=== PATIENT | female | born 1955 | race American Indian/Alaskan Native ===

== ENCOUNTER → 2018-03-07 13:48 | Outpatient (CLI) | payer MEDICARE, MEDICAID, OTHER, SELFPAY | PROVIDERS: Family Provider Physician Assistant; PCP Physician Assistant; Visit Provider Physician Assistant | DX: M81.0 Age-related osteoporosis without current pathological fracture (principal); E11.9 Type 2 diabetes mellitus without complications; F17.210 Nicotine dependence, cigarettes, uncomplicated; Z78.0 Asymptomatic menopausal state; Z82.62 Family history of osteoporosis | CPT/HCPCS: 77080; 77081 ==

== ENCOUNTER → 2018-06-15 12:55 | Outpatient (CLI) | payer MEDICARE, MEDICAID, OTHER, SELFPAY ==
--- NOTE | 2018-06-15 13:00 | DI.RAD.S_ITS ---
PROCEDURE: XR HAND RT MIN 3V INDICATIONS: bilateral hand and joint pain TECHNIQUE: 3 views of the hand(s) acquired. COMPARISON: [facility], CR, XR HAND LT MIN 3V, 06/15/2018, 12:47. [facility], CR, HAND MIN 3VW (RT), 12/29/2011, 13:35. FINDINGS: Bones: No fractures or dislocations. Carpal bones are normally aligned. No suspicious bony lesions. No changes are seen, which are overall most prominent at the 1st carpometacarpal joint, where there is at least moderate joint space narrowing with associated subchondral sclerosis and irregularity, with osteophyte formation. Age-appropriate osteopenia is seen. Soft tissues: No suspicious soft tissue calcifications. IMPRESSION: Degenerative changes are seen, which have progressed compared to 2011. The degenerative changes are most prominent at the 1st carpometacarpal joint. Dictated by: Mani Poe M.D. on 06/15/2018 at 14:50 Approved by: Mani Poe M.D. on 06/15/2018 at 14:51
--- NOTE | 2018-06-15 13:00 | DI.RAD.S_ITS ---
PROCEDURE: XR HAND LT MIN 3V INDICATIONS: bilateral hand and joint pain TECHNIQUE: 3 views of the hand(s) acquired. COMPARISON: [facility], CR, HAND MIN 3VW (LT), 12/29/2011, 13:35. [facility], CR, XR HAND RT MIN 3V, 06/15/2018, 12:47. FINDINGS: Bones: No fractures or dislocations. Carpal bones are normally aligned. No suspicious bony lesions. Age-appropriate osteopenia is seen. Degenerative changes are seen throughout, which are most prominent involving the 1st carpometacarpal joint. Soft tissues: No suspicious soft tissue calcifications. IMPRESSION: Osteopenia and degenerative changes. The degenerative changes have progressed compared to 2011. Dictated by: Mani Poe M.D. on 06/15/2018 at 14:48 Approved by: Mani Poe M.D. on 06/15/2018 at 14:50
== END ==
PROVIDERS: Family Provider Physician Assistant; PCP Physician Assistant; Visit Provider Physician Assistant
DX: M79.641 Pain in right hand (principal); M79.642 Pain in left hand; M18.0 Bilateral primary osteoarthritis of first carpometacarpal joints; M85.842 Other specified disorders of bone density and structure, left hand
CPT/HCPCS: 73130

== ENCOUNTER → 2018-07-04 13:21 | Outpatient (CLI) | payer MEDICARE, OTHER, SELFPAY ==
--- NOTE | 2018-07-04 | DI.RAD.S_ITS ---
PROCEDURE: XR KNEE LT 3V INDICATIONS: RIGHT HAND ,LEFT KNEE AND RIGHT HIP PAIN TECHNIQUE: 3 views of the knee were acquired. COMPARISON: None. FINDINGS: Bones: No fractures or dislocations. No suspicious bony lesions. Soft tissues: No joint effusion. No suspicious soft tissue calcifications. IMPRESSION: No trauma found. No appreciable degenerative change. Dictated by: Nick Peters M.D. on 07/04/2018 at 15:02 Approved by: Nick Peters M.D. on 07/04/2018 at 15:02
--- NOTE | 2018-07-04 | DI.RAD.S_ITS ---
PROCEDURE: XR WRIST RT MIN 3V INDICATIONS: RIGHT WRIST ,LEFT KNEE AND RIGHT HIP PAIN TECHNIQUE: 4 views of the wrist were acquired. COMPARISON: None. FINDINGS: Bones: No fractures or dislocations, but there is a moderate degree of degenerative osteophytic change at the articulation between the base of the first metacarpal and the trapezium. No suspicious bony lesions. Scaphoid view: Degenerative osteoarthritis is mild at the distal scaphoid but no trauma is seen. Soft tissues: No suspicious soft tissue calcifications. IMPRESSION: No trauma found. 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 Dictated by: Nick Peters M.D. on 07/04/2018 at 15:01 Approved by: Nick Peters M.D. on 07/04/2018 at 15:02
--- NOTE | 2018-07-04 | DI.RAD.S_ITS ---
PROCEDURE: XR HIP W PEL IF DONE RT 2V INDICATIONS: RIGHT HAND ,LEFT KNEE AND RIGHT HIP PAIN TECHNIQUE: AP pelvis with lateral view(s) of the right hip(s). COMPARISON: [facility], , HIPBILAT 3TO4V W PEL IF PERFD, 04/30/2016, 11:53. FINDINGS: Bones: No fractures or dislocations. Pelvic ring appears intact. No suspicious bony lesions. Left hip degenerative osteoarthritis is present, mild in overall severity. Right hip arthroplasty shows no evidence of device loosening or disruption. Soft tissues: The visualized bowel gas pattern is normal. No suspicious soft tissue calcifications. IMPRESSION: Prior right total hip arthroplasty appears normal, left hip mild degenerative osteophytic change as was previously the case. Dictated by: Nick Peters M.D. on 07/04/2018 at 14:59 Approved by: Nick Peters M.D. on 07/04/2018 at 15:00
== END ==
PROVIDERS: Family Provider Physician Assistant; PCP Physician Assistant; Visit Provider Physician Assistant
DX: M25.551 Pain in right hip (principal); M79.641 Pain in right hand; M25.562 Pain in left knee; M16.12 Unilateral primary osteoarthritis, left hip; M19.041 Primary osteoarthritis, right hand; Z96.641 Presence of right artificial hip joint
CPT/HCPCS: 73110; 73502; 73562

== ENCOUNTER → 2018-09-06 13:00 | Outpatient (CLI) | payer MEDICARE, MEDICAID, OTHER, SELFPAY ==
--- NOTE | 2018-09-06 | DI.RAD.S_ITS ---
PROCEDURE: XR CHEST 2V INDICATIONS: RIGHT SIDE CLAVICAL PAIN TECHNIQUE: 2 views of the chest were acquired. COMPARISON: [facility], , CHEST 2 VIEW, 07/12/2013, 23:50. FINDINGS: Surgical changes and devices: Right upper quadrant surgical clips. Lungs and pleura: No pleural effusions or pneumothorax. No acute consolidation. Scattered subsegmental atelectasis and/or scarring Mediastinum: Mediastinal contours are normal. Heart size is normal. Bones and chest wall: No suspicious bony abnormalities. Soft tissues appear unremarkable. IMPRESSION: No acute consolidation. Scattered subsegmental atelectasis and/or scarring Dictated by: Immanuel Yan M.D. on 09/06/2018 at 16:03 Approved by: Immanuel Yan M.D. on 09/06/2018 at 16:04
== END ==
PROVIDERS: Family Provider Physician Assistant; PCP Physician Assistant; Visit Provider Physician Assistant
DX: R22.1 Localized swelling, mass and lump, neck (principal); M25.511 Pain in right shoulder
CPT/HCPCS: 71046

== ENCOUNTER 2018-10-11 11:50 | Day surgery (SDC) | payer MEDICARE, OTHER, MEDICAID, SELFPAY ==
[2018-10-11] VITALS (7 sets, daily range): BP systolic 94–130; BP diastolic 60–90; PULSE 90–102; RESP 17–25; TEMP 36.1–37; O2SAT 95–99; BMI 31.1
--- NOTE | 2018-10-11 | PATH_ITS ---
[facility] Accession Number: [id number] . 01 Material submitted: . POLYP IN PROXIMAL RIGHT COLON . 02 Diagnosis: Proximal Right Colon, Polyp, Biopsy: Tubular adenoma. V/10/13/2018 . 02 Electronically signed: . Steph Avila MD, Pathologist NPI- [id number] . 01 Gross description: . POLYP IN PROXIMAL RIGHT COLON: Received in formalin is 1 fragment(s) of james, soft tissue measuring 0.4 x 0.3 x 0.3 cm submitted entirely in 1 cassette(s) /CKI /CKI . 02 Pathologist provided ICD-10: D12.6 . 02 CPT . 532520 Performed at: 01 [facility] [address] [id number] MD Reed Inman MD Phone: [phone] Performed at: 02 [facility] [address] [place], [place] [id number] MD Steph Avila MD Phone: [phone]
--- NOTE | 2018-10-11 13:45 | PM.HP.1 ---
History of Present Illness Date Patient Seen: 10/11/18 Time Patient Seen: 13:46 Chief complaint: [id number] Colonoscopy Narrative: Jolene is a wonderful 63-year-old lady who presents for colonoscopy. She reports that she has had lower abdominal pain for 5 or 6 years and it has not really changed but she has not been really evaluated for it either. Last colonoscopy was about 10 years ago and was normal. She denies any new problems since I last saw her in the office. Patient History Family & Social History Family History: Reviewed 10/11/18 by Susei Wilkinson MD Social History: household members family,friend(s) Tobacco & Substance use: Smoking Status Current every day smoker alcohol intake never Meds Home Medications Medication Instructions Recorded Confirmed Type CHOLECALCIFEROL (VITAMIN D3) 400 iu PO QDAY #0 07/06/10 10/11/18 History (Vitamin D3) LISINOPRIL (Zestril / Prinivil) 10 mg PO QDAY #0 07/06/10 10/11/18 History Trazodone Hydrochloride (Trazodone 50 mg PO QDAY #0 07/06/10 10/11/18 History HCl) VITAMIN C - 250 mg PO Q DAY #0 07/06/10 10/11/18 History (VITAMIN C) alendronate 70 mg PO Q7D@0730 #0 tab 07/13/13 08/01/18 History paroxetine HCl 30 mg PO QDAY #0 tab 07/13/13 10/11/18 History rosuvastatin [Crestor] 20 mg PO QDAY #0 tab 07/13/13 10/11/18 History aspirin 81 mg tablet,delayed 81 mg PO DAILY 08/01/18 10/11/18 History release calcium carbonate 600 mg calcium 600 mg PO BID tab 08/01/18 10/11/18 History (1,500 mg) tablet cholecalciferol (vitamin D3) 1,000 2,000 unit PO BID cap 08/01/18 10/11/18 History unit capsule docusate sodium 100 mg capsule 100 mg PO BID 08/01/18 10/11/18 History hydrochlorothiazide 25 mg tablet 25 mg PO DAILY 08/01/18 10/11/18 History metformin 850 mg tablet 850 mg PO BID 08/01/18 10/11/18 History triamcinolone acetonide 0.5 % 1 applictn TOP BID 08/01/18 10/11/18 History topical cream Allergies Allergy/AdvReac Type Severity Reaction Status Date / Time No Known Drug Allergies Allergy Verified 10/11/18 12:36 Review of Systems Review of Systems All systems reviewed & are unremarkable except as noted in HPI and below Exam Vital Signs (past 8 hours): - 10/11/18 12:25 Temperature 97.0 F L Pulse Rate 102 H Respiratory Rate 18 Blood Pressure 130/90 Pulse Oximetry 96 Oxygen Delivery Method Room Air Narrative Exam Narrative: Wonderful 63-year-old lady in no obvious distress HEENT: Normocephalic and atraumatic, pupils equal round reactive to light accommodation with anicteric sclera Lungs: Clear bilaterally Heart: Regular rate and rhythm Abdomen: Soft, nontender, active bowel sounds Extremities: Warm well perfused Assessment & Plan Plan: Assessment/Plan Narrative: Wonderful 63-year-old lady here for screening colonoscopy. We discussed the risks and benefits of the procedure the patient expressed a desire to complete it today.
[2018-10-11] MEDS: fentaNYL 250 MCG/5 ML INJ IV (14:00)
[2018-10-11] MEDS: MIDAZOLAM 5 MG/5 ML VIAL IV (14:01)
--- NOTE | 2018-10-11 14:14 | PM.OP.1 ---
Operative Date/Time/Diagnoses Date of procedure: 10/11/18 Time of procedure: 14:15 Pre-op diagnosis: Screening Post-op diagnosis: same Procedure & Clinicians Procedure: Colonoscopy to the cecum with polypectomy x1 Same procedure as scheduled: Yes Indications: Last colonoscopy 10 years ago Surgeon: Susie Wilkinson Anesthesia Type: Sedation (Versed 5 mg; fentanyl 150 mcg) Operative Notes Findings: 1. Excellent prep 2. A single pedunculated polyp up-approximately 5 mm-in the proximal ascending colon. Completely removed with Jumbo biopsy forceps and retained for pathology 3. Garcia diverticulosis with large and small pockets and false passages in the sigmoid region and scattered large pockets throughout the remainder of the colon. No evidence of acute inflammation. 4. Grade 2 internal hemorrhoids 5. No AV malformations or evidence of additional pathology Specimen(s): other (Polyp from the right colon) Estimated Blood Loss (mL): 1 Procedure in detail: After obtaining informed consent, the patient was brought to the GI suite and placed in the left lateral decubitus position on the examination table. After placement of appropriate monitors, the patient was given incremental doses of Versed and Fentanyl until an appropriate level of sedation was achieved. A time out was held per SCOAP protocol. A digital rectal examination was performed and did not reveal any masses or obstructing lesions. The colonoscope was gently passed into the patient's anus and the entire colon navigated to the level of the cecum with minimal difficulty. Once in the cecum, the scope was withdrawn being sure to go before and beyond all mucosal folds and prominences and get an excellent examination. The findings are noted above. At the level of the rectal vault, the scope was retroflexed and the internal anal canal was examined. The scope was straightened and air aspirated from the colon. The instrument was removed from the patient's body and the procedure was concluded. The patient was allowed to awaken from sedation without difficulty and taken to the post-anesthesia care unit in good condition. Total sedation time was 18 min Total withdrawal time was 9 min and 12 sec Complications: none Condition: stable Disposition: PACU Plan for aftercare: 1. Discharge to home 2. Plan for next colonoscopy in 5 years or as clinically indicated 3. Likely cause of lower abdominal pain is chronic constipation and diverticulosis.
== END 2018-10-11 14:54 | disposition home or self-care (01) ==
PROVIDERS: Family Provider Physician Assistant; PCP Physician Assistant; Visit Provider Surgery
PROC: 0DJD8ZZ Inspection of Lower Intestinal Tract, Via Natural or Artificial Opening Endoscopic (ICD-10-PCS; CPT 45378; principal; 2018-10-11 13:00)
DX: Z12.11 Encounter for screening for malignant neoplasm of colon (principal); F17.210 Nicotine dependence, cigarettes, uncomplicated; K57.30 Diverticulosis of large intestine without perforation or abscess without bleeding; K64.1 Second degree hemorrhoids; D12.6 Benign neoplasm of colon, unspecified
CPT/HCPCS: 45380; 88305; 99152; J2250; J3010

== ENCOUNTER → 2019-02-15 14:19 | Outpatient (CLI) | payer MEDICARE, OTHER, SELFPAY ==
--- NOTE | 2019-02-15 | DI.CT.S_ITS ---
PROCEDURE: CT ABDOMEN PELVIS W CON INDICATIONS: CHRONIC ABDOMINAL PAIN TECHNIQUE: After the administration of oral and intravenous contrast, 5 mm thick sections acquired from the diaphragms to the symphysis. 5 mm thick coronal and sagittal reformats were performed. For radiation dose reduction, the following was used: automated exposure control, adjustment of mA and/or kV according to patient size. COMPARISON: None. FINDINGS: Image quality: There is metallic streak artifact from patient's right hip prosthesis limiting evaluation. ABDOMEN: Lung bases: There is minimal dependent atelectasis. Heart size is normal. Solid organs: Evaluation of the liver demonstrates no focal hepatic lesions. The gallbladder is surgically absent. Biliary system is non-dilated. Pancreas enhances normally. There is slight segmental dilatation of the pancreatic duct in the uncinate process measuring up to approximately 4 mm. The main pancreatic duct is normal in caliber. No discrete pancreatic mass identified. No peripancreatic fat stranding or fluid collections. Spleen is normal in size and enhancement. No adrenal nodules. Kidneys demonstrate no hydronephrosis. Peritoneum and bowel: Stomach and small bowel loops are normal in caliber and wall thickness. The appendix is normal in appearance. There is colonic diverticulosis without definite acute diverticulitis. Short segments of mild colonic wall thickening in the distal sigmoid colon and rectum are suggestive of mild infectious or inflammatory colitis. No free fluid or air. Nodes and vessels: No retroperitoneal or mesenteric adenopathy. Aorta and inferior vena cava are normal in caliber. Miscellaneous: No ventral hernias. PELVIS: Genitourinary: Bladder wall thickness is normal. Miscellaneous: No inguinal hernias or adenopathy. Bones: No suspicious bony lesions. No vertebral body compression fractures. IMPRESSION: 1. Mild segmental wall thickening in the sigmoid colon and rectum suggestive of a mild infectious or inflammatory colitis. 2. Colonic diverticulosis without definite acute diverticulitis. 3. No evidence of appendicitis. 4. Short segment mild dilatation of the pancreatic duct in the uncinate process without a discrete mass visualized. The finding is nonspecific and may represent sequelae of a mild stricture. No CT evidence of acute pancreatitis. Dictated by: Reed Santana M.D. on 02/15/2019 at 16:39 Approved by: Reed Santana M.D. on 02/15/2019 at 16:45
== END ==
PROVIDERS: Family Provider Physician Assistant; PCP Physician Assistant; Visit Provider Physician Assistant
DX: R10.9 Unspecified abdominal pain (principal); G89.29 Other chronic pain; K57.90 Diverticulosis of intestine, part unspecified, without perforation or abscess without bleeding; K86.89 Other specified diseases of pancreas; Z96.641 Presence of right artificial hip joint; Z90.49 Acquired absence of other specified parts of digestive tract
CPT/HCPCS: 74177; Q9967

== ENCOUNTER → 2019-02-23 08:49 | Outpatient (CLI) | payer MEDICARE, OTHER, SELFPAY ==
--- NOTE | 2019-03-03 17:03 | PM.PFT.1 ---
Pulmonary Function Test Referral & Results Date Patient Seen: 02/23/19 Results: The spirometry demonstrates an FVC of 2.25 L which is 90% of predicted. The FEV1 was measured at 1.94 L which is 102% of predicted. The FEV1/FVC ratio was 86 which is 111% of predicted. Following the administration of bronchodilator there was a 29% improvement in FEF 25-75%. Lung volumes show an SVC of 2.20 L which is 92% of predicted. The diffusing capacity was measured at 17.73 which is 109% of predicted. The maximum voluntary ventilation was normal Interpretation: This study this study is probably normal. There may be some element of obstructive lung disease based on small airway inflow improvement after bronchodilator as noted above. Clinical correlation suggested
== END ==
PROVIDERS: Family Provider Physician Assistant; PCP Physician Assistant; Referring Provider Physician Assistant; Visit Provider Physician Assistant
DX: J44.9 Chronic obstructive pulmonary disease, unspecified (principal)
CPT/HCPCS: 94060; 94726; 94729

== ENCOUNTER → 2019-04-18 14:29 | Outpatient (CLI) | payer MEDICARE, OTHER, MEDICAID, SELFPAY ==
--- NOTE | 2019-04-18 | DI.RAD.S_ITS ---
PROCEDURE: XR KUB INDICATIONS: Abd pain/fullness TECHNIQUE: One view of the abdomen acquired. COMPARISON: [facility], , KUB XRAY (1 VIEW ABDOMEN), 04/30/2016, 11:53. FINDINGS: Surgical changes and devices: Surgical clips are present in the gallbladder fossa. Bowel: Bowel gas pattern is normal. Soft tissues: No suspicious abdominal calcifications. Visualized solid organ contours appear normal in size. Bones: No suspicious bony lesions. Right hip arthroplasty is intact. IMPRESSION: No acute intra-abdominal findings. Dictated by: Ramona Moise M.D. on 04/18/2019 at 15:20 Approved by: Ramona Moise M.D. on 04/18/2019 at 15:22
== END ==
PROVIDERS: Family Provider Physician Assistant; PCP Physician Assistant; Visit Provider Physician Assistant
DX: R10.9 Unspecified abdominal pain (principal)
CPT/HCPCS: 74018

== ENCOUNTER 2019-07-18 13:50 | Day surgery (SDC) | payer MEDICARE, OTHER, MEDICAID, SELFPAY ==
[2019-07-18] VITALS (9 sets, daily range): BP systolic 95–114; BP diastolic 61–75; PULSE 67–72; RESP 13–16; TEMP 36.2–36.6; O2SAT 93–98; BMI 32.5
--- NOTE | 2019-07-18 | PATH_ITS ---
[facility] Accession Number: [id number] . 01 Material submitted: . PART A: duodenum - DUODENAL BIOPSY PART B: gastrointestinal site - GASTRIC BIOPSY, ANTRUM PART C: gastrointestinal site - GASTRIC BIOPSY, BODY PART D: esophagus - HIATAL HERNIA DISTAL ESOPHAGUS BIOPSY AT 32CM . 01 Clinical history: . B-C: RULE OUT H.PYLORI . 02 Diagnosis: A. Duodenum, Biopsy: Duodenal mucosa with no diagnostic abnormality. Negative for active inflammation, features of sprue, dysplasia and malignancy. . B. Stomach, Antrum, Biopsy: Antral mucosa with mild chronic gastritis. Negative for Helicobacter by immunohistochemistry. Negative for intestinal metaplasia. Negative for dysplasia and malignancy. . C. Stomach, Body, Biopsy: Mild chronic gastritis. Negative for Helicobacter by immunohistochemistry. Negative for intestinal metaplasia. Negative for dysplasia and malignancy. . D. Distal Esophagus, 32 cm, Biopsy: Squamocolumnar junctional mucosa with foveolar hyperplasia and no other diagnostic abnormality. Negative for intestinal metaplasia by alcian blue stain. Negative for dysplasia and malignancy. MRV 07/21/2019 1432 Local . 02 Electronically signed: . Steph Avila MD, Pathologist NPI- [id number] . 01 Gross description: . Part A: DUODENAL BIOPSY: Received in formalin is 1 fragment(s) of james, soft tissue measuring 0.3 x 0.3 x 0.2 cm submitted entirely in 1 cassette(s) Part B: GASTRIC BIOPSY, ANTRUM: Received in formalin are 2 fragment(s) of james, soft tissue measuring 0.3 x 0.2 x 0.1 cm to 0.1 x 0.1 x 0.1 cm submitted entirely in 1 cassette(s) Part C: GASTRIC BIOPSY, BODY: Received in formalin are 2 fragment(s) of james, soft tissue measuring 0.4 x 0.2 x 0.1 cm to 0.2 x 0.1 x 0.1 cm submitted entirely in 1 cassette(s) Part D: HIATAL HERNIA DISTAL ESOPHAGUS BIOPSY AT 32CM: Received in formalin are 3 fragment(s) of james, soft tissue measuring 0.4 x 0.2 x 0.1 cm to 0.3 x 0.2 x 0.1 cm submitted entirely in 1 cassette(s) /QBJ 07/19/2019 1852 Local . 02 Microscopic: . B-C: Immunohistochemical stains were performed on parts B and C in order to evaluate for Helicobacter organisms, and are both negative. The control stain showed appropriate reactivity. . D. An AB/PAS stain was performed to evaluate for intestinal metaplasia and is negative. The control stain showed appropriate reactivity. . * This test was developed and its performance characteristics determined by [employer]. It has not been cleared or approved by the U.S. Food and Drug Administration. The FDA has determined that such clearance or approval is not necessary. This test is used for clinical purposes. It should not be regarded as investigational or for research. . . 02 Pathologist provided ICD-10: K29.70 . 02 CPT . 701407, 573835, 393367, 760511, G17172, 156416 Performed at: 01 [facility] [address] [address], [place], [place] [id number] MD Reed Inman MD Phone: [phone] Performed at: 02 [facility] [place] [address] [place], [place] [id number] MD Steph Avila MD Phone: [phone]
[2019-07-18] MEDS: SODIUM CHLORIDE 0.9% 1,000 ML 200 ML IV (14:49)
--- NOTE | 2019-07-18 15:37 | PM.PREOP ---
Pre-operative Note Interval Note History & Physical reviewed/Exam performed by Physician: Yes Changes to H&P: Yes H&P completed within 30 days and has changed as indicated here:: Patient has not had a BM since I saw her in the office. She denies feeling constipated. She reports her usual periumbilical pain. ASA Class (for procedural sedation): III
[2019-07-18] MEDS: fentaNYL 250 MCG/5 ML INJ IV (16:06)
[2019-07-18] MEDS: MIDAZOLAM 5 MG/5 ML VIAL IV (16:07)
[2019-07-18] MEDS: LIDOCAINE 4% SOLN 50 ML 20 ML TOP (16:08)
--- NOTE | 2019-07-18 16:10 | PM.OP.ENDO ---
Operative Date/Time/Diagnoses Date of procedure: 07/18/19 Time of procedure: 16:10 Pre-op diagnosis: Anemia, chronic abdominal pain Post-op diagnosis: other (Gastritis with bleeding, large hiatal hernia, ) Procedure & Clinicians Study performed: Esophagogastroduodenoscopy with cold forceps biopsy of duodenum, gastric antrum, and distal esophagus Same procedure as scheduled: Yes Indications: Anemia, chronic abdominal pain Surgeon: Theresa Dodson Procedure Notes SCOAP/Timeout: Performed Procedure in detail: The patient was brought to the room and placed in left lateral decubitus position with all bony prominences padded. A time-out was performed and then the patient was given procedural sedation starting with 3 mg of Versed and [100] mcg of fentanyl. Vitals were monitored throughout the procedure and remained stable. Once adequately sedated the procedure was begun. The upper endoscope was passed without difficulty into the upper GI tract. The anatomy and mucosa of the esophagus, gastroesophageal junction, stomach, pylorus, and duodenum were all carefully inspected. The duodenum appeared normal. Biopsies of the duodenum were taken with cold forceps. There was moderate to severe gastritis seen in the gastric antrum and body of the stomach. There was friable mucosa with adherent clot in the antrum and gastric body. Biopsies of the gastric antrum and body were taken with cold forceps. On retroflex there was a Hill grade 1 hiatal hernia. The esophagus was then examined. There was 1 cm of reddish brown mucosa extending up into the esophagus from the stomach with an irregular Z-line at 32 cm from the incisors. This was biopsied with cold forceps. The endoscope was then withdrawn through the esophagus, and pearly white mucosa was seen without any evidence of breaks in the mucosa or significant esophagitis. The patient tolerated the procedure well and was transferred to the PACU in stable condition. Sedation minutes: 19 Findings: Farfan's esophagus, gastritis and hiatal hernia Specimen(s): other (Biopsies from the duodenum, the gastric antrum, the gastric body, and the distal esophagus/hiatal hernia) Complications: none Impression: 1) The mucosa of the distal esophagus is consistent with Farfan's esophagus 2) There there was moderate to severe gastritis in the stomach with evidence of recent bleeding 3) there was a Hill grade 1 hiatal hernia 4) there were no strictures in the esophagus Post-procedure Recommendations: Prescription for (Omeprazole 20 mg b.i.d., and low acid/anti-reflux diet) and EGD in 3 years Plan for aftercare: Follow the medication and diet recommendations. Follow-up in the office in 1 month. I will follow up biopsy results, and mail the results to the patient. Follow up: months (One month) Disposition: PACU
== END 2019-07-18 17:22 | disposition home or self-care (01) ==
PROVIDERS: Family Provider Physician Assistant; PCP Physician Assistant; Visit Provider Surgery
PROC: 0DJ08ZZ Inspection of Upper Intestinal Tract, Via Natural or Artificial Opening Endoscopic (ICD-10-PCS; CPT 43235; principal; 2019-07-18 16:00)
DX: K29.71 Gastritis, unspecified, with bleeding (principal); K44.9 Diaphragmatic hernia without obstruction or gangrene; D64.9 Anemia, unspecified; K59.00 Constipation, unspecified; F17.210 Nicotine dependence, cigarettes, uncomplicated; E11.9 Type 2 diabetes mellitus without complications; G47.30 Sleep apnea, unspecified; J44.9 Chronic obstructive pulmonary disease, unspecified
CPT/HCPCS: 43239; 99152; J2250; J3010

== ENCOUNTER → 2019-08-22 12:17 | Outpatient (CLI) | payer MEDICARE, OTHER, MEDICAID, SELFPAY ==
[2019-08-22 14:28] LABS: Alanine Aminotransferase 18 IU/L (<35); Albumin 4.3 g/dL (3.5-5.0); Albumin Globulin Ratio 1.5 (1.0-2.8); Alkaline Phosphatase 81 U/L (38-126); Aspartate Aminotransferase 28 IU/L (14-36); Bilirubin Total 0.5 mg/dL (0.2-1.3); Blood Urea Nitrogen 15 mg/dL (7-17); Calcium 9.8 mg/dL (8.4-10.2); Carbon Dioxide 27 mmol/L (22-32); Chloride 104 mmol/L (98-107); Estimated Glomerular Filt Rate 55.8 mL/min (>60); Globulin 2.9 g/dL (1.7-4.1); Glucose 109 mg/dL (80-110); HEMOLYSIS < 15 (0-50); Lipase 344 U/L (23-300); Potassium 4.8 mmol/L (3.4-5.1); Sodium 141 mmol/L (137-145); Total Protein 7.2 g/dL (6.3-8.2)
== END ==
PROVIDERS: Family Provider Physician Assistant; PCP Physician Assistant; Visit Provider Surgery
DX: R10.13 Epigastric pain (principal)
CPT/HCPCS: 36415; 80053; 83690; 86140

== ENCOUNTER → 2019-10-03 13:08 | Outpatient (CLI) | payer MEDICARE, MEDICAID, OTHER, SELFPAY ==
--- NOTE | 2019-10-03 13:10 | DI.MRI.S_ITS ---
PROCEDURE: MR ABDOMEN WO/W CON INDICATIONS: elevated lipase, panc duct dilation, epigastric pain TECHNIQUE: Coronal HASTE, axial 2D FLASH in- and [id number]; axial breath-hold T2 FSE with fat saturation from the hepatic dome to the iliac crests. Oblique coronal thin-slice and radial thick slab HASTE through the biliary system. Dynamic axial VIBE during administration of contrast. Post-contrast coronal VIBE or 2D FLASH with fat saturation from the hepatic dome to the iliac crests. Optional diffusion weighted imaging and ADC may be performed. COMPARISON: [facility], CT, CT ABDOMEN PELVIS W CON, 02/15/2019, 15:33. FINDINGS: Image quality: There is magnetic stability artifact within the posterior soft tissues of indeterminate etiology. Mild motion artifact also present. Pancreas and biliary system: No discrete pancreatic mass identified. No peripancreatic edema or fluid collections. There is mild dilatation of a short segment of the pancreatic duct in the uncinate process redemonstrated, measuring up to approximately 4 mm. This bifurcates into the main pancreatic duct extending into the body and tail as well as a separate branch extending into the uncinate process. No discrete dorsal pancreatic duct of Santorini identified. The findings are compatible with a developmental variant. No discrete filling defects identified. The remainder of the pancreatic duct is normal in caliber. The gallbladder is surgically absent. There is mild biliary ductal dilatation, with the common duct measuring up to 7 mm likely related to prior cholecystectomy. Solid organs: No discrete hepatic masses identified. There is diffuse signal dropout on [id number] imaging consistent with fatty infiltration. The gallbladder surgically absent. Spleen is normal in size and enhancement. No adrenal nodules. Kidneys demonstrate hydronephrosis. Nodes and vessels: No retroperitoneal or mesenteric adenopathy by size criteria. Aorta and inferior vena cava are normal in size. Bowel and peritoneum: Visualized bowel loops are normal in caliber throughout. No free fluid. Lung bases: No basal pleural effusions. Heart size is normal. Bones and soft tissues: No ventral hernias. Bone marrow is normal in overall signal. IMPRESSION: 1. 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 No discrete pancreatic mass or MRI evidence of acute pancreatitis. Dictated by: Reed Santana M.D. on 10/03/2019 at 16:54 Approved by: Reed Santana M.D. on 10/03/2019 at 17:01
== END ==
PROVIDERS: Family Provider Physician Assistant; PCP Physician Assistant; Visit Provider Surgery
DX: R10.13 Epigastric pain (principal); K86.89 Other specified diseases of pancreas; R74.8 Abnormal levels of other serum enzymes; Z90.49 Acquired absence of other specified parts of digestive tract
CPT/HCPCS: 74183; A9579

== ENCOUNTER → 2019-11-08 14:16 | Outpatient (CLI) | payer MEDICARE, MEDICAID, OTHER, SELFPAY ==
[2019-11-10 18:13] LABS: Gastrin 174 pg/mL (< 101)
== END ==
PROVIDERS: Family Provider Physician Assistant; PCP Physician Assistant; Referring Provider Family Medicine; Visit Provider Family Medicine
DX: K29.51 Unspecified chronic gastritis with bleeding (principal)
CPT/HCPCS: 36415; 82941

== ENCOUNTER → 2020-03-01 13:11 | Outpatient (ROUT) | payer MEDICARE, MEDICAID, OTHER, SELFPAY ==
[2020-03-01 13:54] LABS: Add Manual Diff / Slide Review NO; Basophils Absolute Auto 100 /uL (0-100); Basophils Percent Auto 0.7 % (0-2); Eosinophils Absolute Auto 100 /uL (0-450); Eosinophils Percent Auto 1.6 % (2-4); Hematocrit 40.6 % (36-46); Hemoglobin 13.7 g/dL (12.0-16.0); Lymphocytes Absolute Auto 1800 /uL (1100-4500); Lymphocytes Percent Auto 24.2 % (25-40); Mean Corpuscular HGB Conc 33.7 % (30-36); Mean Corpuscular Hemoglobin 27.7 PG (26-34); Mean Corpuscular Volume 82.2 fL (80-100); Monocytes Absolute Auto 400 /uL (0-900); Neutrophils Absolute Auto 5000 /uL (1500-7000); Neutrophils Percent Auto 67.5 % (50-75); Platelet Count 284 X10^3/uL (150-400); Red Blood Cell Count 4.93 X10^6/uL (4.0-5.2); Red Cell Distribution Width 15.3 % (11.6-14.8); White Blood Cell Count 7.5 X10^3/uL (4.5-11.0)
[2020-03-01 14:03] LABS: Alanine Aminotransferase 20 IU/L (<35); Albumin 4.2 g/dL (3.5-5.0); Albumin Globulin Ratio 1.4 (1.0-2.8); Alkaline Phosphatase 96 U/L (38-126); Aspartate Aminotransferase 26 IU/L (14-36); BUN Creatinine Ratio 19.1 (6-22); Bilirubin Total 0.3 mg/dL (0.2-1.3); Blood Urea Nitrogen 18 mg/dL (7-17); Calcium 9.4 mg/dL (8.4-10.2); Carbon Dioxide 27 mmol/L (22-32); Chloride 105 mmol/L (98-107); Cholesterol 116 mg/dL (140-199); Estimated Glomerular Filt Rate 59.8 mL/min (>60); Globulin 3.1 g/dL (1.7-4.1); Glucose 220 mg/dL (80-110); HDL Cholesterol 40 mg/dL (40-60); HEMOLYSIS < 15 (0-50); LDL Cholesterol Calculated 56 mg/dL (<100); Sodium 142 mmol/L (137-145); Total Protein 7.3 g/dL (6.3-8.2); Triglycerides 98 mg/dL (35-150)
[2020-03-01 14:12] LABS: NT-proBNP (BNP-Adult 18+) 388 pg/mL (<125)
[2020-03-01 14:33] LABS: Thyroid Stimulating Hormone 0.24 uIU/mL (0.47-4.68)
== END ==
PROVIDERS: Family Provider Physician Assistant; PCP Physician Assistant; Visit Provider Family Medicine
DX: R06.00 Dyspnea, unspecified (principal); E11.65 Type 2 diabetes mellitus with hyperglycemia
CPT/HCPCS: 80053; 80061; 83880; 84443; 85025

== ENCOUNTER → 2020-04-12 15:25 | Outpatient (ROUT) | payer MEDICARE, OTHER, MEDICAID, SELFPAY ==
[2020-04-12 15:55] LABS: NT-proBNP (BNP-Adult 18+) 342 pg/mL (<125)
== END ==
PROVIDERS: Family Provider Physician Assistant; PCP Physician Assistant; Visit Provider Physician Assistant
DX: Z13.9 Encounter for screening, unspecified (principal)
CPT/HCPCS: 83880

== ENCOUNTER → 2020-11-20 11:17 | Outpatient (CLI) | payer MEDICARE, OTHER, MEDICAID, SELFPAY ==
[2020-11-20 12:01] LABS: COVID19 -Nasal RAPID Negative (Negative)
== END ==
PROVIDERS: Family Provider Physician Assistant; PCP Physician Assistant; Referring Provider Internal Medicine; Visit Provider Internal Medicine
DX: Z20.822 Contact with and (suspected) exposure to COVID-19 (principal)
CPT/HCPCS: 87635; C9803

== ENCOUNTER → 2020-11-20 11:27 | Outpatient (CLI) | payer MEDICARE, OTHER, MEDICAID, SELFPAY ==
--- NOTE | 2020-11-20 | DI.RAD.S_ITS ---
PROCEDURE: XR CHEST 2V INDICATIONS: Atherosclerotic heart disease of [place] coronary artery with TECHNIQUE: 2 views of the chest were acquired. COMPARISON: [facility], CR, XR CHEST 2V, 09/06/2018, 13:23. FINDINGS: Surgical changes and devices: None. Lungs and pleura: Lungs are clear. No pleural effusions or pneumothorax. Mediastinum: Mediastinal contours are normal. Heart size is normal. Bones and chest wall: No suspicious bony abnormalities. Soft tissues appear unremarkable. IMPRESSION: No acute cardiopulmonary process. Dictated by: Mario Engel M.D. on 11/20/2020 at 12:23 Approved by: Mario Engel M.D. on 11/20/2020 at 12:23
== END ==
PROVIDERS: Family Provider Physician Assistant; PCP Physician Assistant; Referring Provider Internal Medicine Cardiovascular Disease; Visit Provider Internal Medicine Cardiovascular Disease
DX: R06.00 Dyspnea, unspecified (principal); I25.118 Atherosclerotic heart disease of native coronary artery with other forms of angina pectoris; Z20.822 Contact with and (suspected) exposure to COVID-19
CPT/HCPCS: 71046; 87635; C9803

== ENCOUNTER → 2020-11-21 10:44 | Outpatient (CLI) | payer MEDICARE, OTHER, MEDICAID, SELFPAY ==
--- NOTE | 2020-11-27 10:06 | PM.PFT.1 ---
Pulmonary Function Test Referral & Results Date Patient Seen: 11/21/20 Requesting provider: Salvador Barba Results: The spirometry demonstrates an FVC of 2.22 L which is 91% of predicted. The FEV1 was measured at 1.91 L which is 103% of predicted. The FEV1/FVC ratio was 86 which is 111% of predicted. Following the administration of bronchodilator there was no appreciable change to above normal numbers. Lung volumes show an SVC of 2.3 L which is 101% of predicted. The diffusing capacity was measured at 20.18 which is 124% of predicted. The maximum voluntary ventilation was slightly reduced Interpretation: This study demonstrates normal spirometry with a supranormal diffusing capacity. Shape of flow volume loop does have some curve suggestive of perhaps very very minimal obstructive lung disease. Together with the elevated diffusing capacity this could be consistent with a diagnosis of very mild asthma. Clinical correlation suggested. Compared to PFTs performed in January 2019, current study is essentially unchanged
== END ==
PROVIDERS: Family Provider Physician Assistant; PCP Physician Assistant; Referring Provider Internal Medicine Cardiovascular Disease; Visit Provider Internal Medicine Cardiovascular Disease
DX: J47.1 Bronchiectasis with (acute) exacerbation (principal); J42 Unspecified chronic bronchitis; F17.210 Nicotine dependence, cigarettes, uncomplicated
CPT/HCPCS: 94060; 94726; 94729

== ENCOUNTER → 2021-01-01 10:06 | Outpatient (CLI) | payer MEDICARE, OTHER, MEDICAID, SELFPAY ==
[2021-01-01 11:30] LABS: COVID19 -Nasal RAPID Negative (Negative)
== END ==
PROVIDERS: Family Provider Physician Assistant; PCP Physician Assistant; Visit Provider Physician Assistant
DX: Z01.812 Encounter for preprocedural laboratory examination (principal); Z20.822 Contact with and (suspected) exposure to COVID-19
CPT/HCPCS: 87635; C9803

== ENCOUNTER → 2021-01-02 14:52 | Outpatient (CLI) | payer MEDICARE, OTHER, MEDICAID, SELFPAY ==
--- NOTE | 2021-01-02 | DI.NM.S_ITS ---
PROCEDURE: NM EXERCISE TREADMILL NON NUC COMPARISON: None. INDICATIONS: CAD FINDINGS: The patient exercised for 3 minutes and 31 seconds, reaching 72% of maximum predicted heart rate (4.6 METs, BARBARA +42%). Resting BP 112/68mmHg and max BP 140/90mmHg. No ECG evidence of ischemia with exercise. No ectopy. No angina during the study. IMPRESSION: Low risk but submaximal treadmill ECG only stress test as only 72% of maximum predicted heart rate reached. Study terminated due to hip pain. No angina during the study. Reduced exercise tolerance (4.6 METs, BARBARA +42%). No ECG evidence of ischemia. Dictated by: Yenifer Barraza MD on 01/02/2021 at 16:46 Approved by: Yenifer Barraza MD on 01/02/2021 at 16:50
--- NOTE | 2021-01-02 15:49 | PM.TREADMILL ---
Cardiac Stress Test Report Referral & Results Date Patient Seen: 01/02/21 Time Patient Seen: 15:49 Requesting provider: Salvador Barba Indication: atherosclerotic heart disease Rest ECG: sinus rhythm Procedure Note: Standard Rasheed protocol, 3:30, 3.7 METS Reduced exercise capacity, BARBARA +42%, submaximal stress test due to dyspnea and hip pain. Patient did not achieve target heart rate Normal hemodynamic response to exercise No chest pain or anginal symptoms No significant ST changes at peak exercise, no ectopy Impression: Submaximal stress test. Failed to achieve target heart rate Please note: Actual ECG tracings can be found in the PACS system.
== END ==
PROVIDERS: Family Provider Physician Assistant; PCP Physician Assistant; Referring Provider Internal Medicine Cardiovascular Disease; Visit Provider Internal Medicine Cardiovascular Disease
DX: I25.118 Atherosclerotic heart disease of native coronary artery with other forms of angina pectoris (principal); R06.00 Dyspnea, unspecified
CPT/HCPCS: 93017

== ENCOUNTER → 2022-02-26 12:35 | Outpatient (CLI) | payer OTHER, SELFPAY ==
--- NOTE | 2022-02-26 | DI.CT.S_ITS ---
PROCEDURE: CT ANGIO ABDOMEN PELVIS INDICATIONS: Unspecified abdominal pain TECHNIQUE: After the administration of intravenous contrast, 2.5 mm sections acquired from the diaphragm to the iliac crests. 10 mm maximum intensity projection (MIP) coronal and sagittal reformats were then performed. For radiation dose reduction, the following was used: automated exposure control. COMPARISON: [facility], CT, CT ABDOMEN PELVIS W CON, 02/15/2019, 15:33. FINDINGS: Image quality: Excellent. Extravascular tissues: Lung bases are clear. Heart size is normal. Calcification of the coronary vasculature is present. Liver is normal in size and enhancement. Hepatic contour is slightly nodular. Gallbladder is surgically absent . Biliary system is non dilated. Pancreas enhances normally. No change in dilatation of the pancreatic duct within the pancreatic head. Spleen is normal in size and enhancement. No adrenal nodules. Kidneys are normal in size and enhancement, without hydronephrosis. Small hiatal hernia. Non-opacified bowel loops demonstrate normal wall thickness and caliber. Normal appendix. Diverticulosis of the descending and sigmoid colon. No free fluid or air. No retroperitoneal or mesenteric adenopathy. No ventral hernias. No suspicious bony abnormalities. No vertebral body compression fractures. Right hip arthroplasty has been performed. Abdominal aorta: Moderate diffuse calcific plaque causes mild diffuse stenosis. No dissection. No aneurysm. Renal and mesenteric arteries: Mild origin stenosis of the celiac and superior mesenteric arteries. High-grade calcific origin stenosis of the inferior mesenteric artery is present. Single bilateral renal arteries are present which are widely patent. IMPRESSION: 1. No no acute process. No explanation for abdominal pain. 2. Mesenteric arterial stenosis as described above. 3. Normal appendix. 4. Sigmoid diverticulosis. No evidence of acute diverticulitis. 5. Small hiatal hernia. 6. Findings suggestive of cirrhosis. Clinical correlation recommended. Dictated by: Clau Vega M.D. on 02/26/2022 at 14:18 Approved by: Clau Vega M.D. on 02/26/2022 at 16:58
== END ==
PROVIDERS: Family Provider Physician Assistant; PCP Physician Assistant; Referring Provider Internal Medicine Gastroenterology; Visit Provider Internal Medicine Gastroenterology
DX: K55.1 Chronic vascular disorders of intestine (principal); K57.30 Diverticulosis of large intestine without perforation or abscess without bleeding; K44.9 Diaphragmatic hernia without obstruction or gangrene; R63.4 Abnormal weight loss; R10.9 Unspecified abdominal pain; R19.7 Diarrhea, unspecified
CPT/HCPCS: 74174; Q9967

== ENCOUNTER → 2022-09-25 16:51 | Outpatient (CLI) | payer OTHER, SELFPAY ==
--- NOTE | 2022-09-25 16:56 | DI.RAD.S_ITS ---
PROCEDURE: XR RIBS LT MIN 3V W CXR1V INDICATIONS: RIB PAIN AND PRODUCTIVE COUGH TECHNIQUE: 2 views of the right ribs were acquired, along with a single view chest. COMPARISON: [facility], CR, XR CHEST 1 VIEW, 11/11/2021, 16:38. [facility], CR, XR CHEST 2V, 11/20/2020, 11:48. FINDINGS: Surgical changes and devices: Cholecystectomy clips are seen. Bones and chest wall: No fractures or dislocations. No suspicious bony lesions. Age-appropriate bony degenerative changes are seen. Overlying soft tissues appear unremarkable. Lungs and pleura: No pleural effusions or pneumothorax. Lungs appear clear. Mediastinum: The cardiac contours are within normal limits. The aorta demonstrates calcification and tortuosity. IMPRESSION: Negative for displaced fracture. No focal infiltrates are seen. Postoperative and degenerative changes are seen. Dictated by: Mani Poe M.D. on 09/25/2022 at 23:20 Approved by: Mani Poe M.D. on 09/25/2022 at 23:22
== END ==
PROVIDERS: Family Provider Physician Assistant; PCP Physician Assistant; Referring Provider Registered Nurse; Visit Provider Registered Nurse
DX: R07.81 Pleurodynia (principal); R05.9 Cough, unspecified
CPT/HCPCS: 71101

== ENCOUNTER → 2023-02-01 11:24 | Outpatient (CLI) | payer OTHER, SELFPAY ==
--- NOTE | 2023-02-01 11:27 | DI.RAD.S_ITS ---
PROCEDURE: XR CHEST 2V INDICATIONS: COUGH TECHNIQUE: 2 views of the chest were acquired. COMPARISON: [facility], , XR CHEST 2V, 09/06/2018, 13:23. [facility], , CHEST 2 VIEW, 07/12/2013, 23:50. FINDINGS: Lungs and pleura: Lungs are clear. No pleural effusions or pneumothorax. Mediastinum: Mediastinal contours are normal. Heart size is normal. Bones and chest wall: No suspicious bony abnormalities. Soft tissues appear unremarkable. IMPRESSION: No acute cardiopulmonary abnormality. Dictated by: Riccardo Dill M.D. on 02/01/2023 at 18:15 Approved by: Riccardo Dill M.D. on 02/01/2023 at 18:16
== END ==
PROVIDERS: Family Provider Physician Assistant; PCP Physician Assistant; Referring Provider Registered Nurse; Visit Provider Registered Nurse
DX: R05.2 Subacute cough (principal); R10.31 Right lower quadrant pain; R10.32 Left lower quadrant pain; R13.10 Dysphagia, unspecified
CPT/HCPCS: 71046; 99213

== ENCOUNTER → 2023-02-05 11:10 | Outpatient (CLI) | payer OTHER, SELFPAY ==
--- NOTE | 2023-02-05 11:12 | DI.CT.S_ITS ---
PROCEDURE: CT ANGIO ABDOMEN PELVIS INDICATIONS: 2. TECHNIQUE: After the administration of intravenous contrast, 2.5 mm sections acquired from the diaphragm to the iliac crests. 10 mm maximum intensity projection (MIP) coronal and sagittal reformats were then performed. For radiation dose reduction, the following was used: automated exposure control. COMPARISON: [facility], CT, CT ANGIO ABDOMEN PELVIS, 02/26/2022, 13:03. FINDINGS: Image quality: Excellent. Extravascular tissues: Lung bases are clear. Heart size is normal. Liver is normal in size and enhancement. Gallbladder has been previously resected . Biliary system is non dilated. Pancreas enhances normally. Spleen is normal in size and enhancement. No adrenal nodules. Kidneys are normal in size and enhancement, without hydronephrosis. Non-opacified bowel loops demonstrate normal wall thickness and caliber. No free fluid or air. No retroperitoneal or mesenteric adenopathy. No ventral hernias. No suspicious bony abnormalities. No vertebral body compression fractures. Note is made of moderate to moderately severe diverticulosis involving the sigmoid colon and only mild diverticulosis involving the descending colon, and no acute diverticulitis is found. Generalized mild colonic obstipation. Abdominal aorta: Mild atherosclerotic plaquing, no significant stenosis or aneurysm found. No dissection present. Mesenteric arteries: Mild atherosclerotic plaquing at the origin of the celiac axis which appears only mildly stenotic. [id number] atherosclerotic calcific plaquing at the origin of the superior mesenteric artery which shows moderate stenosis estimated at 50% stenosis or even potentially slightly greater. Renal arteries: No significant stenosis found. IMPRESSION: 1. Minimal stenosis at the origin of the celiac axis, without significant stenosis beyond that point. 2. Moderate stenosis at the origin of the superior mesenteric artery, at or slightly above 50% narrowing, with no stenosis more distally through the course of the SMA. 3. Generalized colonic obstipation, mild in overall severity. Diverticulosis becomes more prominent as the sigmoid colon is reached but no acute diverticulitis is found. 4. Prior cholecystectomy. Dictated by: Nick Peters M.D. on 02/05/2023 at 13:49 Approved by: Nick Peters M.D. on 02/05/2023 at 13:57
[2023-02-05 11:56] LABS: BUN Creatinine Ratio 19.3 (6-22); Blood Urea Nitrogen 16 mg/dL (7-17); Estimated Glomerular Filt Rate > 60 mL/min (>60)
== END ==
PROVIDERS: Family Provider Physician Assistant; PCP Physician Assistant; Referring Provider Surgery; Visit Provider Surgery
DX: K55.1 Chronic vascular disorders of intestine (principal); K59.00 Constipation, unspecified; R10.31 Right lower quadrant pain; R10.32 Left lower quadrant pain; R13.10 Dysphagia, unspecified; Z90.49 Acquired absence of other specified parts of digestive tract
CPT/HCPCS: 36415; 74174; 82565; 84520; Q9967

== ENCOUNTER 2023-03-24 09:36 | Day surgery (SDC) | payer OTHER, SELFPAY ==
[2023-03-24] MEDS: LACTATED RINGERS 1,000 ML 150 ML IV (09:54)
[2023-03-24 10:06] VITALS: BP 131/76; PULSE 74; RESP 16; TEMP 36.1; O2SAT 98; BMI 30.4
--- NOTE | 2023-03-24 11:02 | PM.HP.1 ---
History of Present Illness History of Present Illness Date Patient Seen: 03/24/23 Time Patient Seen: 11:02 Chief complaint: EGD & Colonoscopy w/poss bx's Narrative: Jolene is here for her EGD and colonoscopy. Please see the prior office note for details. She has dysphagia and lower abdominal pain along with a history mesenteric ischemia. She would a colonoscopy [address] Wilkinson with of adenomatous polyp [facility] Medical History A-fib Accelerated hypertension Antiphospholipid antibody syndrome Barretts esophagus Black stool Bullous pemphigoid Chronic abdominal pain COPD (chronic obstructive pulmonary disease) Coronary artery disease Depressive disorder Diverticulosis Hyperlipidemia Hypothyroid Osteoporosis Prolonged Q-T interval on ECG Sleep apnea Type 2 diabetes mellitus Surgical History H/O heart artery stent History of hip replacement Social History household members: family and friend(s) Smoking Status: Former smoker alcohol intake: never substance use type: does not use Meds Home Medications and Allergies Home Medications Medication Instructions Recorded Confirmed Type cholecalciferol (vitamin D3) 25 2,000 unit PO BID 08/01/18 03/24/23 History mcg (1,000 unit) capsule omeprazole 20 mg capsule,delayed 20 mg PO BID #60 caps 07/18/19 03/24/23 Rx release calcium carbonate 500 mg calcium 500 mg PO DAILY 02/01/23 03/24/23 History (1,250 mg) tablet (Oyster Shell Calcium) metformin 1,000 mg tablet 1,000 mg PO BID 02/01/23 03/24/23 History metoprolol succinate 200 mg 200 mg PO DAILY 02/01/23 03/24/23 History tablet,extended release 24 hr nitroglycerin 0.4 mg sublingual 0.4 mg sublingual Q5M 02/01/23 03/24/23 History tablet paroxetine HCl 40 mg tablet 40 mg PO DAILY 02/01/23 03/24/23 History sitagliptin phosphate 50 mg tablet 50 mg PO DAILY 02/01/23 03/24/23 History (Januvia) aspirin 81 mg chewable tablet 81 mg PO DAILY 03/24/23 03/24/23 History (Aspirin Childrens) aspirin 81 mg tablet,delayed 81 mg PO DAILY 03/24/23 03/24/23 History release Allergies Allergy/AdvReac Type Severity Reaction Status Date / Time No Known Drug Allergies Allergy Verified 03/24/23 09:58 Exam Vital Signs (past 8 hours): - 03/24/23 10:06 Temperature 97 F L Pulse Rate 74 Respiratory Rate 16 Blood Pressure 131/76 Pulse Oximetry 98 Oxygen Delivery Method Room Air Oxygen Delivery Method Room Air Const General: No acute distress Resp Effort & Inspection: normal respiratory effort Assessment & Plan Assessment and plan (1) Dysphagia: Qualifiers: Dysphagia type: unspecified Qualified Code(s): R13.10 - Dysphagia, unspecified Status: Acute (2) Bilateral lower abdominal pain: Status: Acute Plan We reviewed the risks and benefits of EGD and colonoscopy and she would like to proceed
--- NOTE | 2023-03-24 11:36 | PM.OP.EC ---
Operative Date/Time/Diagnoses Date of procedure: 03/24/23 Time of procedure: 11:36 Pre-op diagnosis: Dysphagia and abdominal pain Post-op diagnosis: same Procedure & Clinicians Study performed: EGD and colonoscopy Same procedure as scheduled: Yes Surgeon: Clay Wheeler Procedure Notes Procedure in detail: Surgeon: Clay Wheeler MD Anesthesia: Daryn Red CRNA Procedure in detail: A timeout was performed. A bite blocked was placed and monitors were attached to the patient. The patient was positioned in a left lateral decubitus position. Sedation was administered. Once the patient was sedated the endoscope was inserted through the bite block and passed through the esophagus and stomach and into the duodenum. No abnormalities were seen. We then withdrew the scope into the stomach. No other abnormalities were seen. The endoscope was retroflexed and no hiatal hernia was seen. The endoscope was straightned and withdrawn into the esophagus. No abnormalities were seen. Findings: Normal EGD Next we repositioned the patient for a colonoscopy. A digital rectal exam was performed and was normal. The colonoscope was inserted and advanced to the cecum. The appendiceal orifice was unable to be visualized because of the poor prep. The rest of the colon could not be cleared because of the inadequate prep. The scope was withdrawn from the rectum. Findings: Inadequate prep EBL: 0 Scope withdrawal time: Not applicable Sedation minutes: 38 minutes Post-procedure Disposition: PACU
[2023-03-24 11:38] VITALS: BP 91/57; PULSE 74; RESP 24; TEMP 36.1; O2SAT 93
[2023-03-24 11:42] VITALS: BP 105/65; PULSE 73; RESP 25; O2SAT 93
[2023-03-24 11:48] VITALS: BP 110/68; PULSE 72; RESP 18; O2SAT 96
[2023-03-24 11:53] VITALS: BP 104/68; PULSE 68; RESP 24; TEMP 36.2; O2SAT 97
[2023-03-24 12:10] VITALS: BP 134/78; PULSE 72; RESP 16; TEMP 36.4; O2SAT 98
== END 2023-03-24 12:19 | disposition home or self-care (01) ==
PROVIDERS: Family Provider Physician Assistant; PCP Physician Assistant; Referring Provider Surgery; Visit Provider Surgery
PROC: 0DJD8ZZ Inspection of Lower Intestinal Tract, Via Natural or Artificial Opening Endoscopic (ICD-10-PCS; CPT 45378; principal; 2023-03-24 10:45)
PROC: 0DJ08ZZ Inspection of Upper Intestinal Tract, Via Natural or Artificial Opening Endoscopic (ICD-10-PCS; CPT 43235; 2023-03-24 10:45)
DX: R10.30 Lower abdominal pain, unspecified (principal); R13.10 Dysphagia, unspecified; Z86.010 Personal history of colon polyps; Z53.09 Procedure and treatment not carried out because of other contraindication
CPT/HCPCS: 45378; 43235

== ENCOUNTER 2023-04-08 10:06 | Day surgery (SDC) | payer OTHER, SELFPAY ==
[2023-04-08 10:23] VITALS: BP 143/89; PULSE 73; RESP 16; TEMP 36.8; O2SAT 96; BMI 30.4
[2023-04-08] MEDS: LACTATED RINGERS 1,000 ML 42 ML IV (10:39)
--- NOTE | 2023-04-08 10:42 | PM.HP.1 ---
History of Present Illness History of Present Illness Date Patient Seen: 04/08/23 Time Patient Seen: 10:42 Chief complaint: Dx Colonoscopy w/poss bx Narrative: Jolene is a 59-year-old woman who had an EGD and colonoscopy last month but her prep was inadequate. She is back to repeat the colonoscopy in her prep is much curve cleaner this time. [facility] Medical History A-fib Accelerated hypertension Antiphospholipid antibody syndrome Barretts esophagus Black stool Bullous pemphigoid Chronic abdominal pain COPD (chronic obstructive pulmonary disease) Coronary artery disease Depressive disorder Diverticulosis Hyperlipidemia Hypothyroid Osteoporosis Prolonged Q-T interval on ECG Sleep apnea Type 2 diabetes mellitus Surgical History H/O heart artery stent History of hip replacement Social History household members: family and friend(s) Smoking Status: Former smoker alcohol intake: never substance use type: does not use Meds Home Medications and Allergies Home Medications Medication Instructions Recorded Confirmed Type cholecalciferol (vitamin D3) 25 2,000 unit PO BID 08/01/18 04/08/23 History mcg (1,000 unit) capsule omeprazole 20 mg capsule,delayed 20 mg PO BID #60 caps 07/18/19 04/08/23 Rx release calcium carbonate 500 mg calcium 500 mg PO DAILY 02/01/23 04/08/23 History (1,250 mg) tablet (Oyster Shell Calcium) metformin 1,000 mg tablet 1,000 mg PO BID 02/01/23 04/08/23 History metoprolol succinate 200 mg 200 mg PO DAILY 02/01/23 04/08/23 History tablet,extended release 24 hr nitroglycerin 0.4 mg sublingual 0.4 mg sublingual Q5M 02/01/23 04/08/23 History tablet paroxetine HCl 40 mg tablet 40 mg PO DAILY 02/01/23 04/08/23 History aspirin 81 mg tablet,delayed 81 mg PO DAILY 03/24/23 04/08/23 History release Allergies Allergy/AdvReac Type Severity Reaction Status Date / Time No Known Drug Allergies Allergy Verified 04/08/23 10:15 Exam Vital Signs (past 8 hours): - 04/08/23 10:23 Temperature 98.3 F Pulse Rate 73 Respiratory Rate 16 Blood Pressure 143/89 H Pulse Oximetry 96 Oxygen Delivery Method Room Air Oxygen Delivery Method Room Air Const General: No acute distress Assessment & Plan Assessment and plan (1) Family history of colon cancer: Status: Acute Plan Jolene is a 67-year-old woman with a positive family history of colon cancer in her mother. We reviewed the risks and benefits of colonoscopy and she would like to proceed.
--- NOTE | 2023-04-08 11:41 | PM.OP.COLON ---
Operative Date/Time/Diagnoses Date of procedure: 04/08/23 Time of procedure: 11:41 Pre-op diagnosis: Family history of colon cancer Post-op diagnosis: same Procedure & Clinicians Study performed: Colonoscopy Same procedure as scheduled: Yes Surgeon: Clay Wheeler Procedure Notes Procedure in detail: Surgeon: Clay Wheeler MD Anesthesia: Elvis Holloway CRNA Procedure: The patient was brought to the endoscopy suite, placed in left lateral decubitus position. The patient was connected to monitoring devices. A time-out was performed. Sedation was administered. Once the patient was adequately sedated, a digital rectal exam was performed and was normal. The scope was then inserted and advanced to the cecum where the appendiceal orifice was identified and photographed. The scope was then slowly withdrawn over greater than 6 minutes. The mucosa was thoroughly inspected. There was some right-sided diverticulosis. No polyps found. The scope was retroflexed in the rectum. No abnormalities were seen. The scope was straightened and removed. The patient was awakened and brought to recovery. Scope withdrawal time: 9 minutes Sedation time: 13 minutes EBL: 0 Findings: Right-sided diverticulosis Post-procedure Disposition: PACU
[2023-04-08 11:42] VITALS: BP 76/48; PULSE 66; RESP 22; TEMP 36.5; O2SAT 95
[2023-04-08 11:47] VITALS: BP 69/43; PULSE 66; RESP 22; O2SAT 94
[2023-04-08 11:53] VITALS: BP 85/55; PULSE 65; RESP 19; O2SAT 93
[2023-04-08 11:58] VITALS: BP 95/63; PULSE 74; RESP 16; TEMP 36.5; O2SAT 96
== END 2023-04-08 12:25 | disposition home or self-care (01) ==
PROVIDERS: Family Provider Physician Assistant; PCP Physician Assistant; Referring Provider Surgery; Visit Provider Surgery
PROC: 0DJD8ZZ Inspection of Lower Intestinal Tract, Via Natural or Artificial Opening Endoscopic (ICD-10-PCS; CPT 45378; principal; 2023-04-08 11:00)
DX: Z12.11 Encounter for screening for malignant neoplasm of colon (principal); Z80.0 Family history of malignant neoplasm of digestive organs; E78.5 Hyperlipidemia, unspecified; E03.9 Hypothyroidism, unspecified; I10 Essential (primary) hypertension; J44.9 Chronic obstructive pulmonary disease, unspecified; I25.10 Atherosclerotic heart disease of native coronary artery without angina pectoris; E11.9 Type 2 diabetes mellitus without complications; Z87.891 Personal history of nicotine dependence; K57.30 Diverticulosis of large intestine without perforation or abscess without bleeding
CPT/HCPCS: 45378; J2704

== ENCOUNTER → 2023-07-28 10:49 | Outpatient (CLI) | payer OTHER, SELFPAY ==
--- NOTE | 2023-07-28 10:51 | DI.RAD.S_ITS ---
Bone Density Report Name: EMMANUEL GOETZ Age: 67 Sex: Female Ethnicity: White Date of : 1955 Indication: osteopenia; monitoring treatment; Referring Provider: CAROLYN DOWELL Study: Bone densitometry was performed. Exam Date: July 28, 2023 Accession number: [id number] Bone Density: Region BMD T-score Z-score Classification AP Spine(L1, L2, L3) 0.770 -2.3 -0.3 Osteopenia Femoral Neck (Left) 0.509 -3.1 -1.3 Osteoporosis Total Hip (Left) 0.741 -1.6 -0.2 Osteopenia Total Forearm (Left) 0.393 -3.4 -1.6 Osteoporosis 1/3 Forearm (Left) 0.489 -3.4 -1.4 Osteoporosis UD Forearm (Left) 0.278 -2.8 -1.4 Osteoporosis World Health Organization criteria for BMD impression classify patients as: Normal (T-score at or above -1.0), Osteopenia (T-score between -1.0 and -2.5), or Osteoporosis (T-score at or below -2.5). 10-year Fracture Risk: FRAX not reported because: Some T-score for Spine Total or Hip Total or Femoral Neck at or below -2.5 Treated for osteoporosis Previous Exams: -- Region Exam Age BMD T-score BMD Change BMD Change Date g/cm2 vs Baseline vs Previous -- AP Spine (L1-L3) 07/28/2023 67 0.770 -2.3 -0.024 (-3.0%)# -0.024 (-3.0%)# 03/07/2018 62 0.794 -2.0 Total Hip(Left) 07/28/2023 67 0.741 -1.6 -0.015 (-1.9%)# -0.015 (-1.9%)# 03/07/2018 62 0.756 -1.5 -- *Denotes significance at 95% confidence level, LSC for AP Spine = 0.022 g/cm2, LSC for Total Hip = 0.027 g/cm2 # Denotes dissimilar scan types or analysis methods Impression: The patient has osteoporosis, based on the Left Femoral Neck T-score. No significant bone loss was observed. Discussion: PATIENT UNDER TREATMENT WITH NO SIGNIFICANT BMD LOSS SINCE LAST EXAM. In an untreated patient, BMD typically declines with age. A lack of decline or gain is usually a sign that treatment is efficacious and fracture risk is reduced. It is important to ask patients whether they are taking their medications and to encourage continued and appropriate compliance with their osteoporosis therapies to reduce fracture risk. It is also important to review their risk factors and encourage appropriate calcium and vitamin D intakes, exercise, fall prevention and other lifestyle measures. Follow-Up: Consider a repeat BMD and Vertebral Fracture Assessment (VFA) exam in 2 years or sooner if medically necessary, to reassess this patient's status. Reported by: DANNY PAVON M.D. on 07/28/2023 11:44:00 AM.
== END ==
PROVIDERS: Family Provider Physician Assistant; PCP Physician Assistant; Referring Provider Physician Assistant; Visit Provider Physician Assistant
DX: E05.90 Thyrotoxicosis, unspecified without thyrotoxic crisis or storm; M81.0 Age-related osteoporosis without current pathological fracture; Z78.0 Asymptomatic menopausal state; Z90.710 Acquired absence of both cervix and uterus
CPT/HCPCS: 77080; 77081

== ENCOUNTER → 2024-01-06 11:07 | Outpatient (CLI) | payer MEDICARE, OTHER, SELFPAY ==
--- NOTE | 2024-01-06 11:10 | DI.RAD.S_ITS ---
PROCEDURE: XR CHEST 2V INDICATIONS: PRODUCTIVE COUGH TECHNIQUE: 2 views of the chest were acquired. COMPARISON: [facility], CR, XR CHEST 2V, 02/01/2023, 11:25. FINDINGS: Surgical changes and devices: None. Lungs and pleura: Question minimal opacity at the right lower lobe. No pleural effusions or pneumothorax. Mediastinum: Mediastinal contours are normal. Heart size is normal. Bones and chest wall: No suspicious bony abnormalities. Soft tissues appear unremarkable. IMPRESSION: Question minimal opacity at the right lower lobe. CT chest may be helpful for further evaluation. Dictated by: Jr Humphreys M.D. on 01/06/2024 at 16:33 Approved by: Jr Humphreys M.D. on 01/06/2024 at 16:34
== END ==
LOC: RAD 11:09
PROVIDERS: Family Provider Physician Assistant; PCP Physician Assistant; Referring Provider Physician Assistant; Visit Provider Physician Assistant
DX: R05.8 Other specified cough (principal)
CPT/HCPCS: 71046

== ENCOUNTER → 2024-09-05 12:48 | Outpatient (CLI) | payer MEDICARE, OTHER, SELFPAY ==
--- NOTE | 2024-09-05 12:50 | DI.US.S_ITS ---
PROCEDURE: US ABDOMEN COMPLETE INDICATIONS: PAIN TECHNIQUE: Real-time scanning was performed of the abdominal and retroperitoneal organs, with image documentation. COMPARISON: [facility], US, ABDOMEN COMPLETE, 09/15/2016, 9:06. FINDINGS: Liver: Liver is normal in size and homogeneous in echotexture. Gallbladder: Absent Biliary ducts: Intrahepatic bile ducts are non-dilated. Extrahepatic bile duct caliber measures 8 mm. Normal is 6-7 mm or less in diameter, or 10 mm or less post-cholecystectomy. Pancreas: Visualized portions of the pancreas are sonographically normal. Spleen: Spleen is normal in size and homogeneous in echotexture. Kidneys: Kidneys are normal in size and echotexture. Right kidney measures 9.1 cm long; left kidney measures 9.8 cm long. No hydronephrosis or nephrolithiasis. No solid masses. Aorta: Visualized aorta is normal in caliber at less than 3 cm. Iliacs: Proximal common iliac arteries are normal in caliber at less than 2.5 cm. IVC: Intrahepatic inferior vena cava is patent. Miscellaneous: No free abdominal fluid. IMPRESSION: Gallbladder absent. Otherwise unremarkable abdominal ultrasound. Dictated by: Kwan Solis M.D. on 09/05/2024 at 13:40 Approved by: Kwan Solis M.D. on 09/05/2024 at 13:42
== END ==
PROVIDERS: Family Provider Physician Assistant; PCP Physician Assistant; Referring Provider Nurse Practitioner Family; Visit Provider Nurse Practitioner Family
DX: R10.30 Lower abdominal pain, unspecified (principal); Z90.49 Acquired absence of other specified parts of digestive tract
CPT/HCPCS: 76700